=== PATIENT | male | born 1965 | race African-American/Black ===

== ENCOUNTER 2023-05-17 00:43 | Emergency (ER) | payer OTHER ==
[~2023-05-17] VITALS: Ht 170.2 cm; Wt 89.1 kg
[2023-05-17 02:11] LABS: URINE BILIRUBIN - DIPSTICK Negative (NEGATIVE); URINE BLOOD DIPSTICK Large (NEGATIVE); URINE COLOR Yellow; URINE GLUCOSE - DIPSTICK Negative (NEGATIVE); URINE KETONE Trace mg/dL (NEGATIVE); URINE LEUK ESTERASE Moderate (NEGATIVE); URINE NITRITE - DIPSTICK Negative (Negative); URINE PROTEIN - DIPSTICK 100 mg/dL (NEG-TRACE); URINE SPECIFIC GRAVITY >=1.030; URINE UROBILINOGEN - DIPSTICK 0.2 E.U./dL (0.2)
[2023-05-17 02:23] LABS: URINE BACTERIA MANY hpf; URINE SQUAMOUS EPITHELIAL CELL FEW EPI/hpf (0-FEW); URINE WBC 20-50 WBC/hpf (0-5)
[2023-05-17] MEDS ORDERED: TAMSULOSIN0.4 MG PO (02:36)
[2023-05-17] MEDS ORDERED: BACTRIM DS1 TAB PO (02:36)
[2023-05-17 02:43] VITALS: BP 105/55
--- NOTE | 2023-05-21 15:52 | NUR ---
faxed microbio report to the [facility] @ [phone] to charge nurse
== END 2023-05-17 02:43 | disposition home or self-care (01) | DRG 690 ==
LOC: ED 00:43
PROVIDERS: Family Medicine
DX: N39.0 Urinary tract infection, site not specified (principal); N40.1 Benign prostatic hyperplasia with lower urinary tract symptoms; R39.11 Hesitancy of micturition; R39.12 Poor urinary stream; R35.1 Nocturia